=== PATIENT | female | born 1990 | race African-American/Black ===

== ENCOUNTER 2017-05-01 08:14 | Emergency (ER) | payer SELFPAY ==
[~2017-05-01] VITALS: Ht 165.1 cm; Wt 103.0 kg
[2017-05-01 08:26] VITALS: BP 168/76
--- NOTE | 2017-05-01 08:37 | PHYS DOC ---
Past Medical History Past Medical History: No Pertinent History Past Surgical History: No Surgical History Alcohol Use: None Drug Use: None Adult General Chief Complaint Chief Complaint: HAND PROBLEM HPI HPI Patient is a 26 year old female presents to the emergency department with a history of hitting her left hand on a bed rail while at work last night. Patient states she has not take anything for pain. She states the nurse at the facility placed bengay and ice on the hand. Patient states she has not had relief. She denies numbness or tingling to the left hand, she is able to move the fingers with discomfort noted. Patient is right hand dominant. Review of Systems Review of Systems Constitutional: Denies fever or chills [] Eyes: Denies change in visual acuity, redness, or eye pain [] HENT: Denies nasal congestion or sore throat [] Respiratory: Denies cough or shortness of breath [] Cardiovascular: No additional information not addressed in HPI [] GI: Denies abdominal pain, nausea, vomiting, bloody stools or diarrhea [] : Denies dysuria or hematuria [] Musculoskeletal: Denies back pain. C/o left hand pain Integument: Denies rash or skin lesions [] Neurologic: Denies headache, focal weakness or sensory changes [] Endocrine: Denies polyuria or polydipsia [] Allergies Allergies Allergies Coded Allergies Type Severity Reaction Last Updated Verified No Known Drug Allergies 03/09/15 No Physical Exam Physical Exam Constitutional: Well developed, well nourished, no acute distress, non-toxic appearance. [] HENT: Normocephalic, atraumatic, bilateral external ears normal, oropharynx moist, no oral exudates, nose normal. [] Eyes: PERRLA, EOMI, conjunctiva normal, no discharge. [] Neck: Normal range of motion, no tenderness, supple, no stridor. [] Cardiovascular:Heart rate regular rhythm Lungs & Thorax: no respiratory distress Skin: Warm, dry, no erythema, no rash. [] Back: No tenderness Extremities: Left hand tenderness noted over the metacarpal area, no cyanosis, no clubbing, ROM intact, no edema. Patient with swelling noted, no discoloration noted. Good sensation noted to the fingers, cap refill brisk < 2 seconds. Radial pulse 2+. Neurologic: Alert and oriented X 3, normal motor function, normal sensory function, no focal deficits noted. [] Psychologic: Affect normal, judgement normal, mood normal. [] Current Patient Data Vital Signs Vital Signs Date Time Temp Pulse Resp B/P (MAP) Pulse Ox O2 Delivery O2 Flow Rate FiO2 05/01/17 08:26 98.2 90 16 168/76 (106) 100 Room Air 98.2 EKG EKG [] Radiology/Procedures Radiology/Procedures [facility] [address] [place] [address] IMAGING REPORT Signed PATIENT: MALAIKA PEDERSON ACCOUNT: [id number] : 1990 LOCATION: ER AGE: 26 SEX: F EXAM STATUS: REG ER ORD. PHYSICIAN: NIA JOHNSON APRN REASON: left hand pain after hitting it on a bed rail PROCEDURE: HAND LEFT 3V Left hand, 3 views, 05/01/2017: History: Injury, pain No fracture or dislocation is identified. The soft tissues are unremarkable. IMPRESSION: No significant abnormality is detected. DICTATED and SIGNED BY: DEBBY WALTERS MD DATE: 05/01/17 09 CC: NIA JOHNSON APRN; NO PCP ~ [] Course & Med Decision Making Course & Med Decision Making Pertinent Labs and Imaging studies reviewed. (See chart for details) X-ray negative for bony abnormalities. Patient was provided with x-ray results. Recommended ice packs on 20 minutes and off 20 minutes several times a day. Elevation as much as possible. Vega wrap for comfort. Followup with work comp as needed. Tylenol or Ibuprofen for pain and discomfort. Signs and symptoms to return to the emergency department have been provided to patient. Patient will e discharged home in stable condition. [] Dragon Disclaimer Dragon Disclaimer This electronic medical record was generated, in whole or in part, using a voice recognition dictation system. Departure Departure Impression: Primary Impression: Contusion of left hand Disposition: 01 HOME, SELF-CARE Condition: STABLE Referrals: NO PCP (PCP) Patient Instructions: Contusion, [id number] Additional Instructions: Activity as tolerated Tylenol or Ibuprofen for pain and discomfort Ice packs on 20 minutes and off 20 minutes several times a day Elevation as much as possible Vega wrap to the left hand as needed for comfort Followup with your work comp physician as needed Return to emergency department as needed for signs and symptoms that become worse. NIA JOHNSON REHABILITATION THERAPY TECHNICIAN May 01, 2017 08:37
--- NOTE | 2017-05-01 09:19 | RAD ---
Left hand, 3 views, 05/01/2017: History: Injury, pain No fracture or dislocation is identified. The soft tissues are unremarkable. IMPRESSION: No significant abnormality is detected.
== END 2017-05-01 09:50 | disposition home or self-care (01) ==
LOC: ER 08:14
DX: S60.222A Contusion of left hand, initial encounter (principal); W22.8XXA Striking against or struck by other objects, initial encounter; Y93.89 Activity, other specified; Y92.69 Other specified industrial and construction area as the place of occurrence of the external cause; Y99.8 Other external cause status
CPT/HCPCS: 73130; 99284